=== PATIENT | male | born 1975 | race Caucasian/White ===

== ENCOUNTER 2016-05-29 09:20 | Inpatient (IN) | payer MEDICARE, OTHER ==
--- NOTE | ~2016-05-29 | DS ---
Unit #: [id number] #: [id number] Patient: RADHA CHOPRA [id number] [facility] [address] [place] [address] [id number] MR#: [id number] NAME: RADHA CHOPRA ROOM: [facility] Age: 40 Sex: M Admission Date: 05/29/2016 : 1975 Discharge Date: 06/01/2016 Attending Physician: Den Wolf M.D. Primary Care Physician: Generic Doctor Not In System DISCHARGE SUMMARY REASON FOR ADMISSION The patient is a 40-year-old white male, admitted to the [address] [place] [address] unit with recurrent abuse of methamphetamine, depressed mood, and suicidal ideation. HOSPITAL COURSE The patient was admitted to the [address] [place] [address] unit and restarted on previously prescribed Seroquel and Zoloft. He tolerated these medications well and exhibited little in the way of signs or symptoms of withdrawal. By 06/01/2016, the patient requested discharge stating that he would go to "[facility]" and would then continue treatment in the chemical dependence intensive outpatient program. As per his request, discharge was ordered. FINAL DIAGNOSES Methamphetamine use disorder, dysthymic disorder, Crohn disease. DISPOSITION ON DISCHARGE The patient is discharged on the following medications; Zoloft 50 mg daily for depression, Seroquel 50 mg t.i.d. for mood stabilization, Deltasone tapered dose for Crohn disease. DISCHARGE INSTRUCTIONS No dietary or physical restrictions were placed upon the patient at the time of discharge. FOLLOWUP Followup will take place through the auspices of the chemical dependence intensive outpatient program provided by this facility. PROGNOSIS The patient's prognosis is considered fair. Dictated by... Den Wolf M.D. CB/bladimir TD: 06/02/2016 02:02 JOB #: [id number] Unit #: [id number] #: [id number] Patient: RADHA CHOPRA DISCHARGE SUMMARY Page 1 of 1 X Den Wolf MD DISCHARGE SUMMARY
--- NOTE | ~2016-05-29 | HP ---
Unit #: [id number] #: [id number] Patient: STANLEY CHOPRA [id number] [place] [address] [id number] MR#: [id number] NAME: STANLEY CHOPRA ROOM: 32 Age: 40 Sex: M Admission Date: 05/29/2016 : 1975 Attending Physician: Den Wolf M.D. Admitting Physician: Den Wolf M.D. Primary Care Physician: Reji Doctor Not In System HISTORY AND PHYSICAL HISTORY OF PRESENT ILLNESS Stanley is a 40 year old admitted to [address] [place] [address] because of his continued drug use. PAST MEDICAL HISTORY 1. Long history of poly=illicit substance abuse to include snorting heroin and methamphetamine. 2. Crohn disease. 3. Osteoporosis secondary to chronic prednisone therapy. 4. History of multiple anal fistulas. PAST SURGICAL HISTORY 1. Numerous abdominal surgeries a. Colostomy. ALLERGIES Penicillin SOCIAL HISTORY Smokes two packs per day. Denies alcohol. Admits to a long history of illicit substance abuse to include marijuana, opioids and methamphetamine. FAMILY HISTORY Medically noncontributory. REVIEW OF SYSTEMS CONSTITUTIONAL: No fever or chills. HEENT: Denies any sore throat, ear pain or runny nose. CARDIOVASCULAR: Denies chest pain, irregular heart rhythm or palpitations. CHEST: Denies shortness of breath or cough. No hemoptysis. GASTROINTESTINAL: Denies nausea, vomiting, diarrhea or chronic constipation. ENDOCRINE: Denies history of increased thirst or urination. No recent significant weight loss or gain. GENITOURINARY: Denies dysuria, frequency, or hematuria. SKIN: Denies any rashes. HEMATOLOGIC: Denies history of increased bleeding or bruising. MUSCULOSKELETAL: Denies any hot, swollen joints. No generalized muscle pain. NEUROLOGIC: Denies problems with vision or speech. No frequent, severe headaches. No numbness, tingling or weakness in any extremities. Denies Unit #: [id number] #: [id number] Patient: STANLEY CHOPRA loss of bladder or bowel control. CURRENT MEDICATIONS 1. Vistaril p.r.n. 2. Milk of Magnesia p.r.n. 3. Maalox p.r.n. 4. Tylenol p.r.n. 5. Nicotine patch 14 mg daily PHYSICAL EXAMINATION GENERAL: Alert, well-nourished, in no apparent distress. VITAL SIGNS: Blood pressure 134/80, heart rate 88, respirations 16, temperature 98.6. WEIGHT: 200 pounds. HEIGHT: 5'8". SKIN: Warm and dry without rash or lesion. HEENT: Normocephalic. TMs not viewed. Oral and nasal passages clear. Conjunctivae clear. Pupils equal, round and reactive to light and accommodation. Extraocular movements intact. NECK: Supple without lymphadenopathy or thyromegaly. HEART: Regular rate and rhythm without murmur. LUNGS: Clear. ABDOMEN: Soft, nontender. Colostomy bag is noted with moderate amounts of light brown stool. He also has a small abdominal fistula. : Not done. EXTREMITIES: No evidence of cyanosis, clubbing or edema. Moves all extremities without focal deficit. NEUROLOGICAL: Grossly within normal limits. Cranial Nerves: II: Visual souza are intact. III, IV AND : Extraocular movements are intact. Pupils are equal, round and reactive to light. V: Facial sensation is grossly normal. VII: Facial movements and expression are normal. VIII: Auditory acuity grossly intact. IX, X: Uvula is midline. Phonation is normal. XI: Patient shrugs shoulders and turns head normally. XII: Tongue protrudes in the midline. Sensory and Motor Function: Sensory and motor sensation is grossly normal. Motor: moves all extremities well. Coordination: Gait is normal. Deep Tendon Reflexes: Intact. IMPRESSION Psychiatric admission RECOMMENDATIONS PSYCHIATRIC: Per psychiatrist. MEDICAL: 1. I see no contraindications to participating in facility's activities. 2. He needs a clean four by four to cover the abdominal fistula daily. MEDICAL PROGNOSIS Good. MEDICAL CONDITION Stable. Unit #: [id number] #: [id number] Patient: STANLEY CHOPRA Dictated by... Maeve Singer P.A.-C. for Marisol Diaz/jm TD: 05/29/2016 19:55 JOB #: [id number] HISTORY AND PHYSICAL X Maeve Singer X HISTORY AND PHYSICAL
--- NOTE | ~2016-05-29 | PN ---
Unit #: [id number] #: [id number] Patient: RADHA CHOPRA [id number] [facility] [address] [place] [address] [id number] MR#: [id number] NAME: RADHA CHOPRA ROOM: 32 Age: 40 Sex: M Admission Date: 05/29/2016 : 1975 Attending Physician: Den Wolf M.D. Admitting Physician: Den Wolf M.D. Primary Care Physician: Generic Doctor Not In System [facility] PROGRESS NOTES DATE 05/31/2016 DISCUSSION The patient is abed today offering no new complaints. He has had little in the way of signs or symptoms of withdrawal and has encouraged him participation within the therapeutic milieu. He continues to express feelings of hopelessness and expresses a wish to continue treatment and residential care following discharge from this facility. Dictated by... Den Wolf M.D. CB/bzg TD: 05/31/2016 14:47 JOB #: [id number] [facility] PROGRESS NOTES Page 1 of 1 X Den Wolf MD X PROGRESS NOTE
--- NOTE | ~2016-05-29 | PA ---
Unit #: [id number] #: [id number] Patient: RADHA CHOPRA [id number] [facility] [address] [place] [address] [id number] I MR#: [id number] NAME: RADHA CHOPRA ROOM: [facility] Age: 40 Sex: M Admission Date: 05/29/2016 : 1975 Date of Assessment: 05/30/2016 Attending Physician: Den Wolf M.D. Admitting Physician: Den Wolf M.D. Primary Care Physician: Generic Doctor Not In System PSYCHIATRIC ASSESSMENT IDENTIFYING INFORMATION The patient is a 40-year-old white male readmitted to the [address] [place] [address] complaining of suicidal ideation. CHIEF COMPLAINT "At this time it is not the drugs." INFORMANT(S) Patient, reliability is fair. HISTORY OF PRESENT ILLNESS The patient is a 40-year-old white male admitted to the [address] [place] [address] after presenting to this facility complaining of depression and suicidal ideation. The patient reports increasing anxiety, panic, and worried. The patient reports that he has "only gotten high twice" since his last admission to this facility. His drug of choice is methamphetamine. He has been in the intensive outpatient program in the past. The patient reports that he had been prescribed Zoloft and Seroquel by this physician during a previous stay in the hospital, but he stopped to comply with medication after he had "gotten high." The patient continues to endorse positive suicidal ideation when seen today but is expressing interest in residential chemical dependence treatment and reinitiation of psychotropic medication. He exhibits little in the way of signs or symptoms of withdrawal today but continues to endorse positive suicidal ideation. For more complete history of present illness, please refer to previously dictated notes. PAST PSYCHIATRIC HISTORY Reviewed, no changes. PAST MEDICAL HISTORY Reviewed, no changes. MEDICATIONS Prednisone and Vistaril. ALLERGIES Penicillin and morphine. FAMILY HISTORY Reviewed, no changes. SOCIAL HISTORY Unit #: [id number] #: [id number] Patient: RADHA CHOPRA Reviewed, no changes. MENTAL STATUS EXAMINATION Examination at this time reveals the patient to be an obese white male appearing stated age. She is heavily and grotesquely tattooed. He is awake, alert, and oriented in all spheres. His mood is mildly dysphoric, his affect congruent. Speech is generally well coherent. There are no gross deficits in memory or cognition noted. Intelligence is judged to be in the average range based on fund of knowledge. The patient is cooperative throughout the interview. He is currently endorsing positive suicidal ideation. He denies homicidal ideation. He denies any psychotic symptoms. His judgment and insight appear to be at baseline. ASSETS AND LIABILITIES The patient's assets are to be assessed. Liabilities: Lack of resources, ongoing substance use, health issues. DIAGNOSTIC IMPRESSION 1. Methamphetamine use disorder. 2. Mood disorder unspecified. 3. Crohn's disease. TREATMENT PLAN The patient remains hospitalized for safety and stabilization. Suicide precautions are in place. I will ask the patient's oncology social work to see him regarding possible residential chemical dependence treatment, and we will restart Seroquel and Zoloft at previous doses. ESTIMATED LENGTH OF STAY 3 to 5 days. Dictated by... Den Wolf M.D. KEISHA/abhijit TD: 05/30/2016 13:44 JOB #: [id number] PSYCHIATRIC ASSESSMENT Page 1 of 1 X Den Wolf MD X PSYCHIATRIC ASSESSMENT
[2016-05-30 09:38] LABS: BASOPHIL% 0.2 % (0-2.5); EOSINOPHIL# 0.1 X10e3 (0-0.7); EOSINOPHIL% 0.9 % (0.0-7.0); HEMATOCRIT 40.6 % (38.0-50.0); HEMOGLOBIN 13.3 gm/dL (13.0-16.0); LYMPHOCYTE# 1.4 X10e3 (1.0-3.5); LYMPHOCYTE% 14.3 % (17.0-45.0); MEAN CELL VOLUME 81.3 FL (83-96); MEAN CORPUSCULAR HEMOGLOBIN 26.6 PG (28-34); MEAN CORPUSCULAR HGB CONC 32.7 g/dL (30-36); MEAN PLATELET VOLUME 7.8 FL (6.5-11.5); MONOCYTE% 10.3 % (3.0-12.0); NEUTROPHIL# 7.2 X10e3 (1.5-7.1); NEUTROPHIL% 74.3 % (40-75); PLATELET COUNT 418 X10e3 (140-420); RED CELL DISTRIBUTION WIDTH 17.7 % (11.0-15.5); WHITE BLOOD COUNT 9.7 X10e3 (4.0-10.5)
[2016-05-30 09:40] LABS: DIFF IND NO
[2016-05-30 10:06] LABS: THYROID STIMULATING HORMONE 1.28 uIU/ml (0.34-5.60)
[2016-05-30 10:10] LABS: ALBUMIN SERUM 3.2 g/dL (3.5-5.0); ALKALINE PHOSPHATASE 59 U/L (32-92); ALT (SGPT) 12 U/L (10-40); AST (SGOT) 14 U/L (10-42); BILIRUBIN,TOTAL 0.5 mg/dL (0.2-2.0); BLOOD UREA NITROGEN 15 mg/dL (9-23); CALCIUM SERUM 8.6 mg/dL (8.4-10.2); CARBON DIOXIDE 26 mmol/L (22-31); CHLORIDE 103 mmol/L (100-111); CREATININE SERUM 0.6 mg/dL (0.6-1.4); GLOM FILT RATE Estimated ABOVE60 mL/min (>60); GLUCOSE FASTING 82 mg/dL (70-110); POTASSIUM 4.2 mmol/L (3.5-5.1); PROTEIN TOTAL SERUM 7.1 g/dL (6.0-8.3); SODIUM 138 mmol/L (135-145)
[2016-05-30 10:13] LABS: FREE THYROXIN (T4) 0.83 ng/dL (0.58-1.64)
== END 2016-06-01 14:50 | DRG 897 ==
LOC: POF 09:20 → P1S 11:35
PROVIDERS: Specialist
DX: F15.20 Other stimulant dependence, uncomplicated (principal); R45.851 Suicidal ideations; K50.90 Crohn's disease, unspecified, without complications; F39 Unspecified mood [affective] disorder; M81.0 Age-related osteoporosis without current pathological fracture; Z79.52 Long term (current) use of systemic steroids; Z88.0 Allergy status to penicillin; F17.210 Nicotine dependence, cigarettes, uncomplicated
CPT/HCPCS: 80053; 84439; 84443; 85025; J1200